=== PATIENT | male | born 1960 | race African-American/Black ===

== ENCOUNTER 2017-02-16 15:19 | Day surgery (SDC) | payer BC, OTHER ==
[2017-02-14 14:33] VITALS: BMI 19.8
--- NOTE | 2017-02-16 17:58 | HP ---
[facility] - Chief Complaint History of Present Illness: 56 year old man with renal failure requesting placement of PD catheter for peritoneal dialysis. History Source: Patient, Medical Record - Past Medical History Allergies/Adverse Reactions: Allergies Allergy/AdvReac Type Severity Reaction Status Date / Time No Known Allergies Allergy Verified 02/14/17 14:21 Cardiovascular: Yes: HTN, Hyperlipdemia - Current Medications Current Medications: Home Medications Medication Instructions Recorded Amlodipine Besylate 10 mg PO DAILY 02/14/17 Aspirin [ASA -] 81 mg PO DAILY 02/14/17 Calcium Acetate 667 mg PO TID 02/14/17 Cyclosporine, Modified [Neoral] 50 mg PO BID 02/14/17 Febuxostat [Uloric -] 20 mg PO DAILY 02/14/17 Furosemide 20 mg PO DAILY PRN 02/14/17 Metoprolol Succinate [Toprol Xl] 75 mg PO DAILY 02/14/17 Mycophenolate Mofetil [Cellcept -] 500 mg PO BID 02/14/17 Pravastatin Sodium [Pravachol (Nf)] 20 mg PO HS 02/14/17 Satellite Physical Exam - Physical Examination Vital Signs: Vital Signs Period Temp Pulse Resp BP Sys/Garza Pulse Ox Last 24 Hr 98.7 F 78 15 124/78 99 General Appearance: Alert & Oriented x3 ENT: Clear Lung: Clear to auscultation Heart: Regular rate & rhythm Abdomen: Soft Extremities: No edema Satellite Impression/Plan - Impression/Plan Impression: ESRD Operative Procedure: Laparoscopic placement of peritoneal dialysis catheter Date to be Performed: 02/16/17
[2017-02-16] MEDS ORDERED: ROCURONIUM BROMIDE 50 MG/5 ML VIAL ONE (18:21)
[2017-02-16] MEDS ORDERED: NEOSTIGMINE METHYLSULFATE 0.5 MG/ML - 10 ML MDV ONE (18:37)
[2017-02-16] MEDS ORDERED: GLYCOPYRROLATE 0.2 MG/1 ML VIAL ONE (18:45)
[2017-02-16] MEDS ORDERED: ONDANSETRON 4 MG/2 ML VIAL IVPUSH PRN (19:27)
[2017-02-16] MEDS ORDERED: oxyCODONE HCL 5 MG TABLET PO PRN (19:32)
--- NOTE | 2017-02-16 19:32 | OP ---
Operative Note - Note: Operative Date: 02/16/17 Pre-Operative Diagnosis: ESRD on HD Operation: Laparoscopy, Placement of peritoneal Dialysis catheter Implants: Success-neck curled catheter Post-Operative Diagnosis: Same as Pre-op Surgeon: Juan Antonio Quijano Anesthesiologist/HAIRSPRING ADJUSTER: Glenn iH Anesthesia: General
[2017-02-16] MEDS ORDERED: ONDANSETRON 4 MG/2 ML VIAL ONE (19:45)
[2017-02-16] MEDS ORDERED: SODIUM CHLORIDE 0.9% P/F 10 ML VIAL IJ ONE (20:28)
[2017-02-16] MEDS ORDERED: ceFAZolin SODIUM 1 GM VIAL ONE (20:28)
[2017-02-16] MEDS ORDERED: PROMETHAZINE HCL 25 MG/1 ML VIAL ONE (20:54)
[2017-02-16] MEDS ORDERED: PROMETHAZINE HCL 25 MG/1 ML VIAL IVPUSH PRN (20:58)
[2017-02-16] MEDS: oxyCODONE HCL 5 MG TABLET PO PRN (23:18)
[2017-02-17] MEDS: oxyCODONE HCL 5 MG TABLET PO PRN (07:04)
[2017-02-17 11:00] VITALS: BP 130/80; PULSE 80; TEMP 98.6
--- NOTE | 2017-03-11 08:20 | OP ---
DATE OF OPERATION: 02/16/2017 SURGEON: Juan Antonio Quijano MD PROCEDURE: Laparoscopic placement of peritoneal dialysis catheter. PREOPERATIVE DIAGNOSIS: End-stage renal disease. POSTOPERATIVE DIAGNOSIS: End-stage renal disease. ANESTHESIA: General. ANESTHESIOLOGIST: Kolton OPERATIVE FINDINGS: The peritoneal cavity was free of adhesions. OPERATIVE PROCEDURE: Following routine patient identification, general anesthesia was induced. The abdomen was prepped with ChloraPrep. Timeout was performed. A small skin incision was made in the midline above the umbilicus and a 5-mm optical port was placed with direct visualization into the peritoneal cavity. Pneumoperitoneum was then established with carbon dioxide to 15 mmHg pressure. A 5-mm angled laparoscope was used to explore the abdomen. A skin incision was then made at the level of the umbilicus and an 8-mm blunt-tip port was advanced under laparoscopic visualization to the underside of the peritoneum. It was then advanced distally towards the pelvis and allowed to enter the peritoneal cavity at the top of the true pelvis. A double-cuff swan-neck curled peritoneal dialysis catheter was then straightened with a wire and advanced through the 8-mm port and positioned in the pelvis. The port was removed. The inner cuff was placed just above the level of the peritoneum. The end of the catheter was then attached to a curved trocar which was passed in the subcutaneous plane to exit on the right lower quadrant abdominal wall. The cuffs were positioned in the subcutaneous tissue. The Luer lock adapter was then attached to the catheter and 1 L of saline was run into the peritoneal cavity after release of the pneumoperitoneum. This took approximately 3-1/2 minutes. The bag was then dropped to the floor and the catheter drained well. The port was removed. The incisions were closed with interrupted suture of 3-0 Vicryl in the subcutaneous tissues and 4-0 Biosyn on the skin. Dermabond glue was applied. The catheter exit site was dressed with a Biopatch and dry gauze and an occlusive dressing. The patient was then taken to the recovery room in stable condition. Magali [id number]
== END 2017-02-17 09:13 | disposition home or self-care (01) ==
LOC: JASU-SURG 15:19 → J5S 21:35 → JASU-SURG 02-17 09:13
PROVIDERS: ATTEND Surgery
PROC: 0WHG43Z Insertion of Infusion Device into Peritoneal Cavity, Percutaneous Endoscopic Approach (ICD-10-PCS; principal; 2017-02-16 16:30)
DX: I12.0 Hypertensive chronic kidney disease with stage 5 chronic kidney disease or end stage renal disease (principal)
CPT/HCPCS: 36415; 84132; 94760

== ENCOUNTER 2017-03-11 13:36 | Day surgery (SDC) | payer BC, OTHER ==
[2017-03-09 11:33] VITALS: BMI 19.8
[~2017-03-11 13:36] MED LIST: ceFAZolin SODIUM 1 GM VIAL IVPB ONE
[2017-03-11] MEDS ORDERED: PROPOFOL 20 ML ONE (15:21)
[2017-03-11] MEDS ORDERED: ROCURONIUM BROMIDE 50 MG/5 ML VIAL ONE (15:21)
--- NOTE | 2017-03-11 15:49 | HP ---
[facility] - Chief Complaint History of Present Illness: 56 year old man on HD with recent placement of PD catheter. Cathter is not draining and needs revision. History Source: Patient Limitations to Obtaining History: No Limitations - Past Medical History Allergies/Adverse Reactions: Allergies Allergy/AdvReac Type Severity Reaction Status Date / Time No Known Allergies Allergy Verified 03/11/17 14:17 Cardiovascular: Yes: HTN, Hyperlipdemia - Current Medications Current Medications: Home Medications Medication Instructions Recorded Amlodipine Besylate 10 mg PO DAILY 02/14/17 Aspirin [ASA -] 81 mg PO DAILY 02/14/17 Calcium Acetate 667 mg PO TID 02/14/17 Cyclosporine, Modified [Neoral] 50 mg PO BID 02/14/17 Febuxostat [Uloric -] 20 mg PO DAILY 02/14/17 Furosemide 20 mg PO DAILY PRN 02/14/17 Metoprolol Succinate [Toprol Xl] 75 mg PO DAILY 02/14/17 Mycophenolate Mofetil [Cellcept -] 500 mg PO BID 02/14/17 Pravastatin Sodium [Pravachol (Nf)] 20 mg PO HS 02/14/17 [facility]ellite Physical Exam - Physical Examination Vital Signs: Vital Signs Period Temp Pulse Resp BP Sys/Garza Pulse Ox Last 24 Hr 98.3 F 89 16 143/90 98 General Appearance: Alert & Oriented x3, No Distress ENT: Clear Lung: Clear to auscultation Heart: Regular rate & rhythm Breasts: Soft, Non-Tender Satellite Impression/Plan - Impression/Plan Impression: Malfunction PD catheter Operative Procedure: Laparoscopy for revision of PD catheter. Date to be Performed: 03/11/17
[2017-03-11] MEDS ORDERED: DESFLURANE GAS 240 ML BOTTLE IH ONE (15:53)
[2017-03-11] MEDS ORDERED: ceFAZolin SODIUM 1 GM VIAL ONE (16:03)
[2017-03-11] MEDS ORDERED: ceFAZolin SODIUM 1 GM VIAL IVPB ONE (16:06)
[2017-03-11] MEDS ORDERED: BUPIVACAINE HCL/PF 0.5% (5MG/ML) 10 ML VIAL ONE (16:12)
[2017-03-11] MEDS ORDERED: DEXAMETHASONE SOD PHOSPHATE 4 MG/1 ML VIAL ONE (16:17)
[2017-03-11] MEDS ORDERED: PHENYLEPHRINE HCL 10 MG/1 ML SINGLE DOSE VIAL ONE (16:23)
[2017-03-11] MEDS ORDERED: BUPIVACAINE HCL/PF 0.5% (5MG/ML) 10 ML VIAL IJ ONE ×2 (16:26)
[2017-03-11] MEDS ORDERED: NEOSTIGMINE METHYLSULFATE 0.5 MG/ML - 10 ML MDV ONE (16:48)
[2017-03-11] MEDS ORDERED: GLYCOPYRROLATE 0.2 MG/1 ML VIAL ONE (16:48)
[2017-03-11] MEDS ORDERED: ACETAMINOPHEN 325 MG TABLET (FP) PO PRN (16:54)
--- NOTE | 2017-03-11 16:54 | OP ---
Operative Note - Note: Operative Date: 03/11/17 Pre-Operative Diagnosis: Malfunction of PD catheter Operation: Laparoscopy, revision of PD catheter Findings: Catheter tip lying in pelvis covered with loops of intestine. Post-Operative Diagnosis: Same as Pre-op Surgeon: Juan Antonio Quijano Anesthesiologist/PRODUCTION PROOFREADER: David Cotton Anesthesia: General
[2017-03-11] MEDS ORDERED: PROMETHAZINE HCL 25 MG/1 ML VIAL IVPUSH PRN (17:06)
[2017-03-11 17:51] VITALS: TEMP 98
[2017-03-11] MEDS ORDERED: ACETAMINOPHEN 325 MG TABLET (FP) ONE (18:14)
[2017-03-11 19:31] VITALS: BP 130/90; PULSE 88
--- NOTE | 2017-03-12 09:23 | OP ---
DATE OF OPERATION: 03/11/2017 SURGEON: Kenny Spence MD PROCEDURE: Laparoscopy with revision of peritoneal dialysis catheter. PREOPERATIVE DIAGNOSIS: Malfunction of peritoneal dialysis catheter. POSTOPERATIVE DIAGNOSIS: Malfunction of peritoneal dialysis catheter. ANESTHESIA: General. ANESTHESIOLOGIST: David Cotton DO OPERATIVE FINDINGS: The pre-existing peritoneal dialysis catheter was found to be lying within multiple loops of small intestine in the pelvis. The catheter was, otherwise, patent and had good flow. OPERATIVE PROCEDURE: Following routine patient identification with site and side verification, general anesthesia was induced. The abdomen was prepped with Betadine solution. A small incision was made in the midline above the umbilicus and a 5-mm Visiport placed under direct laparoscopic visualization into the peritoneal cavity. Pneumoperitoneum was established with carbon dioxide to 15 mmHg pressure. A 5-mm angled laparoscope was inserted and abdominal exploration carried out with the above-noted findings. A second 5-mm port was placed under direct vision in the left abdominal wall. A grasper was used to pull the catheter out from the beneath the loops of bowel and make sure that it was not kinked in order to prevent this from happening again. A stab wound was made on the lower abdominal wall and a spinal needle inserted in the midline. A 2-0 Prolene suture was passed through the needle, grasped with the grasper and then a suture passer used to pull it back out through the between securing the catheter to the anterior abdominal wall. The suture was tied loosely. The catheter was then attached to a liter bag of saline, which was then run in in approximately 2-1/2 minutes. The bag was dropped to the floor, and the fluid drained rapidly. Catheter was capped. The incisions were closed with interrupted suture of 3-0 Vicryl in subcutaneous tissues and subcuticular sutures of 4-0 Biosyn on the skin. Dermabond glue was used as a dressing, and the ABD pad was placed over the catheter. The patient was then taken to the recovery room in stable condition. KENNY SPENCE M.D. [id number]
== END 2017-03-11 19:32 | disposition home or self-care (01) ==
LOC: JASU-SURG 13:36
PROVIDERS: ATTEND Surgery
PROC: 0WW Anatomical Regions, General, Revision (ICD-10-PCS; principal; 2017-03-11 15:00)
DX: T85.691A Other mechanical complication of intraperitoneal dialysis catheter, initial encounter (principal); Z79.82 Long term (current) use of aspirin; I10 Essential (primary) hypertension; E78.5 Hyperlipidemia, unspecified; Y83.8 Other surgical procedures as the cause of abnormal reaction of the patient, or of later complication, without mention of misadventure at the time of the procedure; Y92.89 Other specified places as the place of occurrence of the external cause
CPT/HCPCS: 36415; 84132; 94760

== ENCOUNTER 2017-04-20 07:01 | Day surgery (SDC) | payer BC, OTHER ==
[2017-04-18 13:06] VITALS: BMI 19.8
[2017-04-20] MEDS ORDERED: LIDOCAINE HCL 1%, 10 MG/ML (20ML VIAL) ONE (07:34)
[2017-04-20] MEDS ORDERED: POVIDONE-IODINE OINTMENT 10% - 28.4 GM TUBE ONE (07:34)
[2017-04-20] MEDS ORDERED: HEPARIN NA (PORCINE) 5,000 UNITS/ML 1ML VIAL ONE (07:34)
[2017-04-20] MEDS ORDERED: MIDAZOLAM HCL 2 MG/2 ML SINGLE DOSE VIAL ONE ×2 (08:08)
[2017-04-20] MEDS ORDERED: PROPOFOL 20 ML ONE ×4 (08:08→10:21)
[2017-04-20] MEDS ORDERED: ceFAZolin SODIUM 1 GM VIAL ONE (09:25)
[2017-04-20] MEDS ORDERED: DEXAMETHASONE SOD PHOSPHATE 4 MG/1 ML VIAL ONE (09:28)
[2017-04-20] MEDS ORDERED: LIDOCAINE HCL 1%, 10 MG/ML (20ML VIAL) INF ONE ×2 (09:38)
[2017-04-20] MEDS ORDERED: PAPAVERINE HCL 30 MG/1 ML 10 ML VIAL NR ONE (09:38)
--- NOTE | 2017-04-20 09:38 | HP ---
Admitting History and Physical - Admission History of Present Illness: The patient is a 57 yo male who presents today for left arm AVF/or graft creation. He is currently receiving HD via a right IJ shiley and had HD yesterday. The patient tried PD dialysis but it was unsuccessful. He denies any fevers/CP/SOB and is able to ambulate two slights of stairs without difficulty. The patient is right hand dominant. 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 No: Hematuria Heme/Onc: No: Hypercoaguable State - Past Surgical History Past Surgical History: Yes: Hernia Repair Additional Past Surgical History: heart transplant in 1996 right sided lung resection in 1994 Left inguinal hernia repair/abdominal hernia repair peritoneal dialysis catheter placement this year x4 - Smoking History Smoking history: Never smoked Have you smoked in the past 12 months: Yes - Alcohol/Substance Use Hx Alcohol Use: No Home Medications - Allergies Allergies/Adverse Reactions: Allergies Allergy/AdvReac Type Severity Reaction Status Date / Time No Known Allergies Allergy Verified 04/20/17 07:53 - Home Medications Home Medications: Ambulatory Orders Amlodipine Besylate 10 mg PO HS 02/14/17 Aspirin [ASA -] 81 mg PO DAILY 02/14/17 Calcium Acetate 667 mg PO TID 02/14/17 Cyclosporine, Modified [Neoral] 50 mg PO BID 02/14/17 Febuxostat [Uloric -] 20 mg PO DAILY 02/14/17 Furosemide 20 mg PO DAILY PRN 02/14/17 Metoprolol Succinate [Toprol Xl] 75 mg PO DAILY 02/14/17 Mycophenolate Mofetil [Cellcept -] 500 mg PO BID 02/14/17 Pravastatin Sodium [Pravachol (Nf)] 20 mg PO HS 02/14/17 Review of Systems - Review of Systems Constitutional: denies: Chills, Fever Neck: reports: Pain on Movement. denies: Decreased ROM Cardiovascular: denies: Chest Pain, Edema, Palpitations Respiratory: denies: Cough, SOB Gastrointestinal: denies: Abdominal Pain, Nausea Genitourinary: denies: Burning, Hematuria (makes urine on a daily basis) Musculoskeletal: denies: Decreased ROM, Extremity Pain, Joint Pain Neurological: denies: Headache, Parasthesia Hematology/Lymphatic: denies: Easily Bruised, Excessive Bleeding Physical Examination Vital Signs: Vital Signs Temperature 98.0 F 04/20/17 07:49 Pulse Rate 81 04/20/17 07:49 Respiratory Rate 20 04/20/17 07:49 Blood Pressure 136/88 04/20/17 07:49 O2 Sat by Pulse Oximetry (%) 97 04/20/17 07:49 Constitutional: Yes: No Distress, Calm Eyes: Yes: Conjunctiva Clear. No: Sclera Icterus HENT: Yes: WNL, Atraumatic, Normocephalic Neck: Yes: WNL, Supple Cardiovascular: Yes: WNL, Regular Rate and Rhythm Respiratory: Yes: WNL, Regular, CTA Bilaterally Gastrointestinal: Yes: WNL, Normal Bowel Sounds, Soft Extremities: No: Calf Tenderness Edema: No Peripheral Pulses WNL: Yes Peripheral Pulses: Left Doralis Pedis: 2+, Right Dorsalis Pedis: 2+ Neurological: Yes: WNL, Alert, Oriented ...Motor Strength: LUE, LLE, RUE, RLE Psychiatric: Yes: WNL, Alert, Oriented Labs: CBC, BMP 04/20/17 07:11 Assessment/Plan 57 yo male with ESRD on HD Plan for the greation of left AVf/graft today for permanent access He remains npo DVT ppx with SCDs Medical clearnace/optimization note in his chart from 04/09/[address] Quijano today
[2017-04-20] MEDS ORDERED: POVIDONE-IODINE OINTMENT 10% - 28.4 GM TUBE TP ONE ×3 (10:24→11:07)
[2017-04-20] MEDS ORDERED: PROMETHAZINE HCL 25 MG/1 ML VIAL IVPUSH PRN (10:55)
[2017-04-20] MEDS ORDERED: ONDANSETRON 4 MG/2 ML VIAL IVPUSH PRN (10:55)
[2017-04-20] MEDS ORDERED: oxyCODONE HCL 5 MG TABLET PO PRN ×2 (10:55→12:41)
[2017-04-20] MEDS ORDERED: SODIUM CHLORIDE 1,000 ML IV SCH (11:00)
--- NOTE | 2017-04-20 11:25 | OP ---
Operative Note - Note: Operative Date: 04/20/17 Pre-Operative Diagnosis: ESRD on HD Operation: Placement AV graft left arm. Exploration cephalic vein forearm Findings: Patent cephalic vein in forearm ~2 mm with occlusion in upper arm. Parent axillary artery and vein. Implants: 4-7 mm Propaten graft Post-Operative Diagnosis: Same as Pre-op Surgeon: Juan Antonio Quijano Chief Quality Officer: Dallas Pineda Anesthesiologist/AIR TRAFFIC CONTROL SPECIALIST: Lc Mcclain Estimated Blood Loss (mls): 50
--- NOTE | 2017-04-20 11:35 | SURG ---
Surgery Document Reviewer Note Document Reviewer: Dallas Pineda PA-C Date of Service: 04/20/17 Diagnosis: ESRD on HD Procedure: Placement AV graft left arm. Exploration cephalic vein forearm I was present for the entirety of the operative procedure. For further detail, please refer to operative report. Visit type - Case Type Case Type: Scheduled Admission - New patient This patient is new to me today: Yes Date on this admission: 04/20/17
[2017-04-20] MEDS ORDERED: ACETAMINOPHEN 325 MG TABLET (FP) PO PRN (12:41)
[2017-04-20 16:12] VITALS: TEMP 98
[2017-04-20 16:16] VITALS: BP 108/67; PULSE 70
--- NOTE | 2017-04-21 09:04 | OP ---
DATE OF OPERATION: 04/20/2017 SURGEON: Juan Antonio Quijano MD SPACE CONTROL AGENT: GALA Almodovar PROCEDURE: Exploration of cephalic vein, left forearm and placement of arteriovenous graft, left arm. PREOPERATIVE DIAGNOSIS: End-stage renal disease on hemodialysis. POSTOPERATIVE DIAGNOSIS: End-stage renal disease on hemodialysis. ANESTHESIA: Fractional. ANESTHESIOLOGIST: Lc Mcclain MD OPERATIVE FINDINGS: The cephalic vein in the proximal forearm measured approximately 2.5 mm in diameter. A number 5 feeding tube could not be passed proximal to the upper arm. The axillary artery was approximately 3 mm in diameter, and the adjacent axillary vein was approximately 4 mm in diameter. DESCRIPTION OF OPERATIVE PROCEDURE: Following routine patient identification with side and site verification, intravenous sedation was established. The left arm was prepped with ChloraPrep. Timeout was performed. Next, 1% Xylocaine was infiltrated over the cephalic vein in the proximal forearm. A skin incision was made and carried into subcutaneous tissues using cautery. The vein was ligated distally and incised. It was distended with heparin and papaverine solution. A number 5 feeding tube was passed proximally in the vein but met resistance in the upper portion of the upper arm, suggesting severe stenosis or occlusion. Decision was made that this vein would not be acceptable for an AV fistula. The vein was then clipped, and the wound was closed with interrupted suture of 3-0 Vicryl on the subcutaneous tissues and running subcuticular suture of 4-0 Biosyn on the skin. Attention was then turned to the axilla. Next, 1% Xylocaine was infiltrated over the axillary pulse, and a longitudinal incision made. This was carried deep with cautery. The axillary artery and vein were identified. Careful dissection to separate the vessels from the adjacent median nerve was carried out, and the vessels were encircled with Vesseloops. Side branches of the artery and vein were ligated with silk ties and divided. A counterincision was then made proximal to the elbow crease, and a curved metal tunneler passed in the subcutaneous plane along the medial and lateral aspects of the arm. The 4-7 mm Propaten graft was then passed through the tunnel with care not to twist or kink it. The axillary artery was then occluded with bulldog clamps, and a 4-mm arteriotomy made. The end of the graft was anastomosed to the side of the artery with running suture of 6-0 Prolene. Following completion of the suture line, the artery was allowed to back bleed and flush, and the graft was flushed. The graft was occluded with a vascular clamp, and the suture line was completed. The artery was then released. Bleeding from the suture line was controlled with Surgicel. The graft was checked for its length and pulled taut within its tunnel. The vein was then occluded proximally with a bulldog clamp and distally with a Vesseloop. It was opened with a longitudinal venotomy measuring approximately 2 cm. The end of the graft was beveled on the anastomosis side of the vein with running suture of 6-0 Prolene. Prior to completion of the suture line, the vein was allowed to back bleed and the graft was allowed to flush. The lumen was filled with heparin solution, and then, the suture line was completed. All clamps were removed. There was good flow through the graft with a palpable pulse present. A brachial pulse was also present. Surgicel was applied to the suture lines until bleeding ceased, and then, the wounds were closed with interrupted suture of 3-0 Vicryl and skin ciarra. Sterile dressings were applied, and the patient was taken to the recovery room in stable condition. Magali [id number]
== END 2017-04-20 14:30 | disposition home or self-care (01) ==
LOC: JASU-SURG 07:01
PROVIDERS: ATTEND Surgery
PROC: 05U Upper Veins, Supplement (ICD-10-PCS; principal; 2017-04-20 09:00)
DX: I12.0 Hypertensive chronic kidney disease with stage 5 chronic kidney disease or end stage renal disease (principal); N18.6 End stage renal disease; Z99.2 Dependence on renal dialysis
CPT/HCPCS: 36415; 84132; 94760; J1644